=== PATIENT | female | born 1955 | race Caucasian/White ===

== ENCOUNTER 2022-06-01 18:04 | Emergency (ER) | payer MEDICARE, OTHER, SELFPAY ==
[2022-06-01 18:05] VITALS: BP 192/88; PULSE 124; RESP 16; TEMP 36.1; O2SAT 99; BMI 24.3
--- NOTE | 2022-06-01 18:21 | EKG12_ITS ---
Test Reason : CP Blood Pressure : / mmHG Vent. Rate : 119 BPM Atrial Rate : 119 BPM P-R Int : 134 ms QRS Dur : 078 ms QT Int : 308 ms P-R-T Axes : 069 063 057 degrees QTc Int : 433 ms Sinus tachycardia Cannot rule out Anterior infarct , age undetermined Abnormal ECG Confirmed by TONY PACKER, JOAN ([id number]), rewrite editor NINA FOREMAN ([id number]) on 06/03/2022 9:57:07 AM Referred By: Confirmed By:JOAN JIMENEZ MD
--- NOTE | 2022-06-01 18:25 | RAD_ITS ---
EXAM: XR CHEST, 1 VIEW CLINICAL INDICATION: chest pain TECHNIQUE: Frontal view of the chest. This report was created using [employer] report generation technology. COMPARISON: None. FINDINGS: LUNGS AND PLEURAL SPACES: Unremarkable. No consolidation or edema. No pneumothorax. No effusion. HEART: Unremarkable. Cardiac silhouette not enlarged. MEDIASTINUM: Central airways and mediastinal contour are unremarkable. BONES/JOINTS: Unremarkable. SOFT TISSUES: Unremarkable. RAD/Chest 1 View (Portable) IMPRESSION: No radiographic evidence of acute cardiopulmonary disease. Electronically Signed: Phuc Lopez MD at 18:39 EDT ,
--- NOTE | 2022-06-01 18:25 | NURSING ---
NO OLD EKGS
[2022-06-01 19:42] LABS: Absolute Lymphocyte Count 2.06 X10^3/uL (0.83-4.51); Absolute Neutrophil Count 5.3 X10^3/uL (2.0-7.7); Basophil# 0.02 X10^3/uL; Basophil% 0.3 % (0-1); Eosinophil# 0.01 X10^3/uL; Eosinophils% 0.1 % (0-5); Hematocrit 41.7 % (37-47); Hemoglobin 14.3 g/dL (12.0-15.0); Lymphocyte # 2.06 X10^3/ul (0.83-4.51); Lymphocyte % 26.3 % (19-41); Mean Corp Hgb Conc 34.3 g/dL (32-36); Mean Corpuscular Hgb 29.2 pg (27.0-32.0); Mean Corpuscular Volume 85.3 fL (81-99); Monocyte% 5.1 % (0-10); NRBC Flagged by Analyzer 0 % (0-5); Neutrophil # 5.33 X10^3/uL (2.7-7.7); Neutrophil % 67.9 % (47-70); Platelet Count 213 K/mm3 (150-450); RBC Distribution Width CV 11.6 % (11.6-14.6); Red Blood Count 4.89 M/mm3 (4.2-5.4); White Blood Count 7.8 K/mm3 (4.4-11.0)
[2022-06-01 19:58] LABS: Anion Gap 7 (5-15); BUN 14 mg/dL (7-18); BUN/Creat Ratio 20.1 RATIO (10-20); Calcium,Total 9.5 mg/dL (8.5-10.1); Chloride 104 mmol/L (98-107); EST Glomerular Filtration Rate 90 mL/min (>60); Est Glom Filt Rate - Afr Amer 109 mL/min (>60); Estimated Creatinine Clearance 69.19 ml/min; Glucose 133 mg/dL (74-106); Potassium 4.5 mmol/L (3.5-5.1); Sodium Level 137 mmol/L (136-145); Troponin-I HS 3 pg/mL (3.0-54.0)
[2022-06-01 20:28] VITALS: BP 158/77; PULSE 102; RESP 15; O2SAT 99
--- NOTE | 2022-06-01 20:39 | US_ITS ---
INDICATION: PAIN EXAMINATION: Ultrasound US Abdomen RUQ (limited) TECHNIQUE: Clayton scale and color doppler imaging was performed of the right upper quadrant. COMPARISON: None. FINDINGS: LIVER: 14.8cm Mild increased hepatic echogenicity. Left hepatic 7 mm cyst. Hepatopedal portal flow. There is no free fluid. GALLBLADDER AND BILIARY TREE: No shadowing gallstone, pericholecystic fluid or gallbladder wall thickening is demonstrated. The proximal common bile duct measures 5 mm, which is within normal limits for the patient''s age. Songraphic Corok''s sign: None RIGHT KIDNEY: 11.6 cm in length. No hydronephrosis. Normal cortical echogenicity. No shadowing nephrolithiasis. PANCREAS: No focal abnormality is demonstrated in the pancreas. No pancreatic ductal dilatation. US/Gallbladder IMPRESSION: Echogenic liver compatible with steatosis. Small left hepatic cyst. Nonspecific mildly echogenic pancreas which can be normal for patient. Pancreatitis can also be echogenic. Correlate with pancreatic labs. Electronically Signed: Darwin Cai MD at 23:00 EDT ,
[2022-06-01] MEDS: Aspirin 81 MG TAB.CHEW 324 MG PO (20:42)
[2022-06-01] MEDS: Mag Hydrox/Al Hydrox/Simeth 30 ML UDC PO (20:45)
[2022-06-01 21:06] VITALS: BP 128/63; O2SAT 99
[2022-06-01 21:15] LABS: AST(SGOT) 18 U/L (15-37); Alanine Aminotransfer ALT/SGPT 29 U/L (13-56); Albumin, Serum 4.2 g/dL (3.2-5.0); Alkaline Phosphatase 77 U/L (45-117); Bilirubin, Direct 0.18 mg/dL (0.00-0.30); Globulin 3.7 g/dL (2.2-4.2); Lipase 64 U/L (73-393); Protein, Total 7.9 g/dL (6.4-8.2)
--- NOTE | 2022-06-01 22:14 | ED.VIS.CHEST ---
HPI History of Present Illness Chief Complaint: Chest Pain Informant: patient Onset/Context/Timing Onset: Weeks (1) Activity at onset: gradual Timing: Intermittent Quality: Positive for Burning Location: Substernal Worsened By: Eating Relieved By: Nothing Associated Symptoms: Positive for Diaphoresis, Acid Reflux and Palpitations; Negative for Nausea, Vomiting, Dyspnea, Cough, Fever or Lightheadedness Narrative Narrative: Patient presents with chest pain that has been intermittent over the last week. Patient describes as burning. Patient states it is over the substernal area. Patient states it is worse after eating. Patient states nothing makes it better. Patient admits to breaking out into a sweat. Patient admits to some reflux symptoms. Patient also admits to some palpitations. Patient states her pain radiates into her back and up into her neck. Patient denies any fevers or chills. Patient denies any nausea or vomiting. CVD Risk Factors: Positive for Hypertension, Diabetes, Hypercholesterolemia and Family History 1' </=55; Negative for Smoking PE Risk Factors: Negative for Recent Travel/Surgery, Recent Immobilization, Prior DVT or PE or Cancer [facility] Medical History (Updated 06/01/22 @ 23:[address] Lebron Flanagan DO) Diabetes mellitus Hypercholesterolemia Hypertension Hypothyroidism Allergy/AdvReac Type Severity Reaction Status Date / Time bacitracin Allergy Rash Verified 06/01/22 18:06 [From Neosporin ([id number])] neomycin Allergy Rash Verified 06/01/22 18:06 [From Neosporin ([id number])] polymyxin B Allergy Rash Verified 06/01/22 18:06 [From Neosporin ([id number])] Surgical History (Updated 06/01/22 @ 22:[address] Lebron Flanagan DO) History of section Hx of neck surgery Social History Smoking Status: Never smoker ROS ROS ED Constitutional Constitutional ED: Denies chills or fever(s) Eyes Eyes: Denies blurry vision or change in vision ENT ENT ED: Denies rhinorrhea or sore throat Cardiovascular Cardiovascular: Reports chest pain and palpitations Respiratory/Chest Respiratory/Chest: Denies cough or dyspnea Gastrointestinal Gastrointestinal: Denies abdominal pain, nausea or vomiting Genitourinary Genitourinary ED: Denies dysuria or hematuria Musculoskeletal Musculoskeletal: Denies back pain or neck pain Integumentary Denies abscess or rash Neurologic Neurologic: Denies headache(s) or weakness Allergic/Immunologic Allergic/Immunologic ED: Denies mouth swelling or urticaria EXAM Physical Exam Const Vital Signs: 06/01/22 18:05 06/01/22 20:28 06/01/22 20:28 Temperature 97 F L Temperature Source Temporal Pulse Rate 124 H 102 H Respiratory Rate 16 15 Blood Pressure 192/88 H 158/77 H Blood Pressure Mean 122 104 Pulse Ox 99 99 Oxygen Delivery Method Room Air Room Air Room Air 06/01/22 21:06 06/01/22 21:06 Temperature Temperature Source Pulse Rate Respiratory Rate Blood Pressure 128/63 H Blood Pressure Mean 84 Pulse Ox 99 Oxygen Delivery Method Room Air Positive well nourished and well developed General Appearance ED: well developed and NAD HEENT normocephalic and atraumatic Eyes PERRL and EOMs intact bilaterally Neck supple and no JVD Chest Wall palpation of chest normal Resp normal respiratory effort and clear to auscultation bilaterally Effort and Inspection: Negative for respiratory distress Cardio regular rate, regular rhythm and no murmurs GI normal to inspection, nondistended, normoactive bowel sounds, soft to palpation, non-tender and non-distended Extremity normal to inspection General Extremety ED: Negative for edema or tenderness General Extremity: Negative for edema Neuro oriented x3, CN's II-XII intact bilaterally and no sensory deficits noted Sensorium / Orientation: awake and alert Motor Exam: strength 5/5 throughout Psych mental status grossly normal Heart Score History: Slightly/Non-Suspicious ECG: Nonspecific Repolarization Age: >/= 65 years Risk Factors: >/= 3 Risk Factors or History of CAD Troponin: </= Normal Limit Score: 5 MDM MDM MDM Narrative Medical decision making narrative: Differential diagnosis includes cardiac dysrhythmia, cardiac ischemia, pneumonia, gastroesophageal reflux disease, cholelithiasis, cholecystitis, and musculoskeletal etiology. EKG will be obtained to assess for cardiac dysrhythmia and cardiac ischemia. Chest x-ray will be obtained to assess for pneumonia and pneumothorax. CBC will be obtained to assess for leukocytosis and anemia. Basic metabolic profile will be obtained to assess for electrolyte abnormality and renal function. Hepatic profile will be obtained to assess for hepatic function. High-sensitivity troponin will be obtained to assess for cardiac ischemia. Right upper quadrant ultrasound will be obtained to assess for cholelithiasis and cholecystitis. Lab Data Attestation: I reviewed the patient's lab results. Lab results narrative: CBC was reviewed and was within normal limits. Basic metabolic profile was reviewed and was essentially within normal limits. Hepatic profile was reviewed and was normal. High-sensitivity troponin was reviewed and was normal at 3. Lipase was reviewed and was normal. Labs: Laboratory Results - last 24 hr 06/01/22 06/01/22 06/01/22 19:30 19:30 19:30 WBC 7.8 RBC 4.89 Hgb 14.3 Hct 41.7 MCV 85.3 MCH 29.2 MCHC 34.3 RDW Std Deviation 36.0 RDW Coeff of Tawanna 11.6 Plt Count 213 MPV 10.0 Immature Gran % (Auto) 0.300 Neut % (Auto) 67.9 Lymph % (Auto) 26.3 Mcmullen % (Auto) 5.1 Eos % (Auto) 0.1 Baso % (Auto) 0.3 Absolute Neuts (auto) 5.3 Absolute Lymphs (auto) 2.06 Nucleated RBC % 0 Sodium 137 Potassium 4.5 Chloride 104 Carbon Dioxide 26.0 Anion Gap 7 BUN 14 Creatinine 0.70 Estim Creat Clear Calc 69.19 Est GFR (MDRD) Af Amer 109 Est GFR (MDRD) Non-Af 90 BUN/Creatinine Ratio 20.1 H Glucose 133 H Calcium 9.5 Total Bilirubin 0.80 Direct Bilirubin 0.18 AST 18 ALT 29 Alkaline Phosphatase 77 Troponin I High Sens 3 Total Protein 7.9 Albumin 4.2 Globulin 3.7 Lipase 64 L Radiography Diagnostic Testing: Clinical Impression(s) from Imaging Studies Chest X-Ray 06/01/22 18:25 IMPRESSION: No radiographic evidence of acute cardiopulmonary disease. Electronically Signed: Phuc Lopez MD at 18:39 EDT , Gallbladder Ultrasound 06/01/22 20:39 IMPRESSION: Echogenic liver compatible with steatosis. Small left hepatic cyst. Nonspecific mildly echogenic pancreas which can be normal for patient. Pancreatitis can also be echogenic. Correlate with pancreatic labs. Electronically Signed: Darwin Cai MD at 23:00 EDT Reading Location ID and State: [facility] / [place] Tel , Service support , Portable 1 view chest x-ray was obtained. On my independent interpretation, lung cantu are clear. There is normal cardiac silhouette. Bony thorax is normal. There is no acute process noted. Radiologist also interpreted the x-ray and agrees. Right upper quadrant ultrasound was obtained. There is echogenic liver consistent with steatosis. There is a small left hepatic cyst. There is a nonspecific mildly echogenic pancreas which can be normal. This was interpreted by the radiologist and was also independently reviewed by myself. EKG Initial EKG: Attestation: I personally reviewed and interpreted this EKG as follows: Interpretation: No Acute Injury Pattern and Sinus Tachycardia (119) Comments: EKG was obtained. On my independent interpretation, it showed a sinus tachycardia with a rate of 119. SD interval, QRS interval, and QTc intervals were all normal. [place] was normal. There are no acute ST or T wave changes. Prior EKG tracings: not available for review Prior: No Prior Treatment and Re-Evaluation :: Patient was given aspirin here. Patient was given a GI cocktail. Patient is feeling better on reevaluation. Patient was advised of her findings. Patient was advised that this could be gastritis or gastroesophageal reflux disease. Patient was instructed to follow-up with her primary care physician in 5 to 7 days for reevaluation. Patient understood and was agreeable with the plan. All questions were answered. Discharge Plan Triage Chief Complaint: Chest Pain ED Provider: Lebron Flanagan Dx/Rx/DC Orders Clinical Impression: Chest pain of uncertain etiology, Hypertension, Diabetes mellitus Instructions: ED Chest Pain, Uncertain Cause Primary Care Provider: Shae Hewitt Referrals: Shae Hewitt MD [Primary Care Provider] - 3-5 Days Disposition Disposition: Home, Self Care
[2022-06-01 23:34] VITALS: O2SAT 99
== END 2022-06-01 23:35 | disposition home or self-care (01) ==
PROVIDERS: Emergency Provider Emergency Medicine; PCP Internal Medicine; Visit Provider Emergency Medicine
DX: R07.9 Chest pain, unspecified (principal); E11.9 Type 2 diabetes mellitus without complications; I10 Essential (primary) hypertension
CPT/HCPCS: 71045; 76705; 80048; 80076; 83690; 84484; 85025; 93005; 99285; A4216

== ENCOUNTER → 2022-07-03 | Outpatient (CLI) | payer MEDICARE, OTHER, SELFPAY ==
--- NOTE | 2022-07-03 | FLU_PTH ---
PATIENT: JEFE ALTAMIRANO LOC: [facility] U#:[id number] AGE/SX: 67/F ROOM: RE07/03/[address]: Dr. Mimi Herrera MD : 1955 BED: DIS: 07/03/2022 SPEC #: [id number] RECD: 07/03/22 16:56 STATUS: MADDIE REQ #: [id number] PANDA: 07/03/22 00:[address]: Mimi Herrera DEPT: CYTOLOGY RECD BY: Epifanio Hancock ENTERED: 07/06/22 09:37 SP TYPE: Fluid OTHR DR: Dr. Shae Hewitt MD Tissues: A - Thyroid gland, NOS B - Thyroid gland, NOS Procedures: Special Stain Group II Surgery Specimen Level IV Cytospin Fluid HEADER OPERATION: Ultrasound-guided fine needle aspiration of right thyroid PRE-OP DIAGNOSIS: Abnormal ultrasound TISSUE SUBMITTED: A - FNA of right thyroid fluid, B - FNA of right thyroid x6 slides DIAGNOSIS CYTOLOGY A. Right thyroid fluid, fine needle aspiration (cytospin and cell block): Negative for malignant cells. See comment. B. Right thyroid, fine needle aspiration (smears): Consistent with benign follicular/colloid nodule ([place] Category II). Adequate for evaluation. See comment. MARÍA:elise 07/07/2022 COMMENT A. The specimen shows a few clusters of benign follicular cells. Correlation with clinical, radiologic findings and appropriate follow up are necessary. CYTOLOGY STUDY Slides are reviewed. CYTOLOGY GROSS A - Received is 30 ml of red cloudy fluid labeled with the patient's name and and designated per the requisition as right thyroid. Submitted for cytology preparation including cell block. B - Received are six smears labeled with the patient's name and designated per the requisition as right thyroid. Submitted for staining. / elise 07/06/2022 TC:5 CPT: 29524 x2, [id number]
== END | disposition home or self-care (01) ==
PROVIDERS: PCP Internal Medicine; Referring Provider Surgery; Visit Provider Surgery
DX: E04.1 Nontoxic single thyroid nodule (principal)
CPT/HCPCS: 88108; 88305; 88313